=== PATIENT | female | born 1995 | race Two or more races ===

== ENCOUNTER 2020-07-03 21:36 | Emergency (ER) | payer SELFPAY ==
[~2020-07-03] VITALS: Ht 154.9 cm; Wt 75.0 kg
--- NOTE | 2020-07-03 22:34 | PHYS DOC ---
Past History Past Medical History: Anxiety, Seizure, Other Additional Past Medical Histor: ptsd, ocd Past Surgical History: No Surgical History Alcohol Use: Occasionally Adult General Chief Complaint Chief Complaint: FINGER INJURY HPI HPI Patient is 24 years old and presents with a chief complaint of finger injury. States that they had a small hangnail that they picked out last week but then smashed it in a door by mistake also. States that since then they have had a little bit of pain and swelling at the site, 3 out of 10, dull and achy in nature. Denies any other injuries. Denies fevers, chills, nausea, vomiting. States that they currently do not have a primary care physician and would like a referral. Review of Systems Review of Systems Review of systems otherwise unremarkable outside of HPI Allergies Allergies Allergies Coded Allergies Type Severity Reaction Last Updated Verified No Known Drug Allergies 07/03/20 No Physical Exam Physical Exam Constitutional: Well developed, well nourished, no acute distress, non-toxic appearance. [] Cardiovascular:Heart rate regular rhythm, no murmur [] Skin: Warm, dry, no erythema, no rash. [] Extremities: Patient's distal fourth right digit with small abrasion with erythema and mild tenderness just lateral to the nail. No apparent pus or abscess. Neurologic: Alert and oriented X 3, normal motor function, normal sensory function, no focal deficits noted. [] Psychologic: Affect normal, judgement normal, mood normal. [] Current Patient Data Vital Signs Vital Signs Date Time Temp Pulse Resp B/P (MAP) Pulse Ox O2 Delivery O2 Flow Rate FiO2 07/03/20 21:40 Room Air EKG EKG [] Radiology/Procedures Radiology/Procedures No acute osseous abnormalities noted on imaging [] Heart Score Risk Factors: Risk Factors: DM, Current or recent (<one month) smoker, HTN, HLP, family hi story of CAD, obesity. Risk Scores: Risk Factors: DM, Current or recent (<one month) smoker, HTN, HLP, family history of CAD, obesity. Course & Med Decision Making Course & Med Decision Making Patient is 24-year-old presents with finger injury Vital signs not concerning. Physical exam noted above. Patient with mild superficial cellulitis and started on cephalexin in the emergency department. Imaging with no acute osseous abnormalities. Discussed all findings with patient and recommended follow-up for establishment of care with a primary care physician to discuss ED visit and set up a post ER follow-up as needed. Advised to take all medications as prescribed. Advised Tylenol, ibuprofen and ice as needed for pain control. Advised to come back to the ED with new or concerning symptoms. Patient grateful, verbalized ayanna betts and agreed with plan of discharge. [] Dragon Disclaimer Dragon Disclaimer This electronic medical record was generated, in whole or in part, using a voice recognition dictation system. Departure Departure: Impression: Primary Impression: Cellulitis Disposition: 01 DC HOME SELF CARE/HOMELESS Condition: GOOD Referrals: PCP,NO (PCP) Patient Instructions: Cellulitis, [id number] Scripts Cephalexin (CEPHALEXIN) 500 Mg Capsule 1 CAP PO TID for cellulitis for 5 Days, #15 CAP Prov: YG VEGAS MD 07/03/20 YG VEGAS MD Jul 03, 2020 22:34
[2020-07-03] MEDS ORDERED: CEPH500C PO (22:55)
--- NOTE | 2020-07-03 22:59 | RAD ---
XR FINGER(S)_RIGHT 2+VIEWS History: Reason: 3rd digit injury, swelling and pain to distal area / Spl. Instructions: / History: Technique: 2 views right third digit. Comparison: None. Findings: Normal alignment. No fracture. Third distal digit soft tissue swelling. Impression: 1. No acute osseous abnormality. 2. Third distal digit soft tissue swelling. Electronically signed by: Etienne Rosas DO (07/03/2020 10:56 PM) [facility]
[2020-07-03] MEDS: CEPHALEXIN 250 MG CAPSULE PO ONE (23:01)
[2020-07-03 23:03] VITALS: BP 115/65
== END 2020-07-03 23:03 | disposition home or self-care (01) ==
LOC: EDSEX 21:36 → ER 21:36
DX: L03.011 Cellulitis of right finger (principal); F41.9 Anxiety disorder, unspecified; F43.10 Post-traumatic stress disorder, unspecified
CPT/HCPCS: 73140; 99283